=== PATIENT | female | born 1990 | race Caucasian/White ===

== ENCOUNTER 2016-10-06 20:40 | Emergency (ER) | payer BC ==
--- NOTE | 2016-10-06 20:44 | PDOC ---
[id number] is a 26 year old female with a past medical hx of anxiety who presents to the ED complaining of intermittent abdominal cramping for two days. She describes the abdominal cramping as period cramps, but states the cramping progressively worsened as the day went on. The patient reports her LMP was and she took an at home test this morning, which came back positive. The patient states she has been having intermittent episodes of diarrhea and since this morning. The patient reports 10 episodes of diarrhea and denies any blood in the stool. She had one episode of vomiting today at around 1530 and reports she vomited up the pizza she had for lunch. She denies hemoptysis. The patient also states she has been having very light vaginal bleeding for two days and describes the color as dark brown. She states she has been one time in the past and had no complications with her or delivery. She reports lightheadedness but denies any syncope. She denies a fever, chest pain, palpitations, SOB, cough, wheezing, numbness, and tingling. Allergies: NKDA Social: Denies tobacco and alcohol use Surgical: None reported <Sharla Funes - Last Filed: 10/06/16 21:44> - History of Present Illness Initial Comments: 10/06/16 21:22 Chief complaint: Nausea vomiting and diarrhea History of present illness: Symptoms since yesterday. Slight spotting since Wednesday night, described as a little bit of a streak of dark blood on her underwear. No other vaginal discharge. Prior was unremarkable, no complications in the mother or . Physical exam: Alert oriented 3 well-developed well-nourished no acute distress. No active vomiting and no cramping Afebrile, vital signs normal HEENT clear Neck supple without bruit mass or nodes Chest clear CV regular without murmur or gallop Abdomen nondistended. Normal bowel sounds. Soft without masses tenderness organomegaly Skin turgor is good and mucous membranes are moist Extremities no CCE Neurological intact. No hyperactive reflexes or clonus Impression: Viral gastroenteritis, possible early miscarriage Plan: CBC and chemistries, IV fluid rehydration, timely PAPER CUP MACHINE OPERATOR follow-up. Since patient is refusing a vaginal exam at present, she was encouraged to see her OB/ RADIO ELECTRONICS OFFICER doctor tomorrow for further examination and treatment. 10/06/16 21:44 10/08/16 08:04 <Serge Mobley - Last Filed: 10/08/16 08:07> - General Chief Complaint: Pain, Acute Stated Complaint: CRAMPING, SPOTTING/POSITIVE Time Seen by Provider: 10/06/16 20:44 Past History <SadiqrubenSharla - Last Filed: 10/06/16 21:44> - Past Medical History Anemia: No Asthma: No Cancer: No Cardiac Disorders: No CVA: No COPD: No CHF: No Dementia: No Diabetes: No GI Disorders: No Disorders: Yes (CYSTITIS) HTN: No Hypercholesterolemia: No Liver Disease: No Psychiatric Problems: Yes (ANXIETY) Suicide Attempt (Hx): No Seizures: No Thyroid Disease: No - Surgical History Abdominal Surgery: No Appendectomy: No Cardiac Surgery: No Cholecystectomy: No Lung Surgery: No Neurologic Surgery: No Orthopedic Surgery: No - Immunization History Td Vaccination: Yes Immunization Up to Date: Yes - Psycho/Social/Smoking Cessation Hx Anxiety: Yes Suicidal Ideation: No Smoking Status: No Smoking History: Never smoked Have you smoked in the past 12 months: No Number of Cigarettes Smoked Daily: 0 Hx Alcohol Use: No Drug/Substance Use Hx: No Substance Use Type: None Hx Substance Use Treatment: No <Serge Mobley - Last Filed: 10/08/16 08:07> - Past Medical History Allergies/Adverse Reactions: Allergies Allergy/AdvReac Type Severity Reaction Status Date / Time No Known Drug Allergies Allergy Verified 10/06/16 20:41 Home Medications: Ambulatory Orders Ondansetron [Zofran Odt -] 4 mg SL TID PRN #10 od.tablet 10/06/16 Review of Systems - Review of Systems Able to Perform ROS?: Yes Comments:: 10/06/16 21:08 CONSTITUTIONAL: Absent: fever, chills, diaphoresis, generalized weakness, malaise, loss of appetite HEENT: Absent: rhinorrhea, nasal congestion, throat pain, throat swelling, difficulty swallowing, mouth swelling, ear pain, eye pain, visual Changes CARDIOVASCULAR: Absent: chest pain, syncope, palpitations, irregular heart rate, lightheadedness , peripheral edema RESPIRATORY: Absent: cough, shortness of breath, dyspnea with exertion, orthopnea, wheezing, stridor, hemoptysis GASTROINTESTINAL: +Nausea, vomiting, diarrhea, abdominal cramping. Absent: abdominal distension, constipation, melena, hematochezia GENITOURINARY: +Vaginal spotting. Absent: dysuria, frequency, urgency, hesitancy, hematuria, flank pain, genital pain MUSCULOSKELETAL: Absent: myalgia, arthralgia, joint swelling SKIN: Absent: rash, itching, pallor NEUROLOGIC: +Lightheadedness. Absent: headache, focal weakness or paresthesias, dizziness, unsteady gait, seizure, mental status changes, bladder or bowel incontinence PSYCHIATRIC: Absent: anxiety, depression, suicidal or homicidal ideation, hallucinations. <Sharla Funes - Last Filed: 10/06/16 21:44> *Physical Exam - Vital Signs Last Vital Signs Temp Pulse Resp BP Pulse Ox 98 F 120 H 16 128/93 100 10/06/16 20:43 10/06/16 20:43 10/06/16 20:43 10/06/16 20:43 10/06/16 20:43 - Physical Exam Comments: 10/06/16 21:44 GENERAL: Well developed, well nourished. Awake and alert. In no acute distress. HEENT: Normocephalic, atraumatic. PERRLA, EOMI. No conjunctival pallor. Sclera are non- icteric. Moist mucous membranes. Oropharynx is clear. NECK: Supple. Full ROM. No JVD. Carotid pulses 2+ and symmetric, without bruits. No thyromegaly. No lymphadenopathy. CARDIOVASCULAR: +Tachycardic. Regular rhythm. No murmurs, rubs, or gallops. Distal pulses are 2 + and symmetric. PULMONARY: No evidence of respiratory distress. Lungs clear to auscultation bilaterally. No wheezing, rales or rhonchi. ABDOMINAL: Soft. Non-tender. Non-distended. No rebound or guarding. No organomegaly. Normoactive bowel sounds. MUSCULOSKELETAL Normal range of motion at all joints. No bony deformities or tenderness. No CVA tenderness. EXTREMITIES: No cyanosis. No clubbing. No edema. No calf tenderness. SKIN: Warm and dry. Normal capillary refill. No rashes. No jaundice. NEUROLOGICAL: Alert, awake, appropriate. Cranial nerves 2-12 intact. No deficits to light touch and temperature in face, upper extremities and lower extremities. Normal speech. PSYCHIATRIC: Cooperative. Good eye contact. Appropriate mood and affect. <Sharla Funes - Last Filed: 10/06/16 21:44> ED Treatment Course - LABORATORY CBC & Chemistry Diagram: 10/06/16 21:15 10/06/16 21:15 - ADDITIONAL ORDERS Additional order review: Laboratory Results 10/06/16 20:50 Urine Color Yellow Urine Appearance Clear Urine pH 5.5 Ur Specific [place] >= 1.030 H Urine Protein 1+ H Urine Glucose (UA) Negative Urine Ketones Trace Urine Blood 2+ H Urine Nitrite Negative Urine Bilirubin 1+ H Urine Urobilinogen 0.2 e.u/dl Ur Leukocyte Esterase Trace Urine RBC 0-2 Urine WBC 5-8 Ur Epithelial Cells Few Urine Bacteria Few Urine HCG, Qual Positive <Sharla Funes - Last Filed: 10/06/16 21:44> - LABORATORY CBC & Chemistry Diagram: 10/06/16 21:15 10/06/16 21:15 <Serge Mobley - Last Filed: 10/08/16 08:07> Medical Decision Making - Medical Decision Making 10/06/16 21:20 Patient's symptoms of nausea vomiting and multiple episodes of diarrhea are most consistent with a viral gastroenteritis. She is absolutely certain about her last period, and her periods are always regular. She has no missed menses. Therefore she is barely 2 weeks . She refuses vaginal exam, planning to see her PAPER CUP MACHINE OPERATOR doctor tomorrow for further examination. Will check labs today, administer intravenous fluid rehydration, and emphasize follow-up tomorrow with PAPER CUP MACHINE OPERATOR physician. Patient requests medication for nausea. Zofran administered. Nausea is improved, no further vomiting. Intravenous fluids running Laboratories pending. Signed out to Dr. Day 7 PM pending lab results and further evaluation 10/08/16 08:05 <Serge Mobley - Last Filed: 10/08/16 08:07> *DC/Admit/Observation/Transfer - Attestations Scribe Attestion: 10/06/16 21:08 Documentation prepared by Sharla Fnues, acting as medical administrative specialist for Serge Brewster MD/DO. <Sharla Funes - Last Filed: 10/06/16 21:44> <Serge Mobley J - Last Filed: 10/08/16 08:07> Diagnosis at time of Disposition: Acute gastroenteritis - Discharge Dispostion Disposition: HOME Condition at time of disposition: Stable - Prescriptions Prescriptions: Ondansetron [Zofran Odt -] 4 mg SL TID PRN #10 od.tablet PRN Reason: Nausea - Patient Instructions Printed Discharge Instructions: Viral Gastroenteritis Additional Instructions: clear liquids advance diet cautiously Zofran 4mg ODT up to 3 times a day as needed for nausea return if vomiting persists followup with your warp tying machine knotter tomorrow as planned
[2016-10-06 20:48] VITALS: BP 128/93; PULSE 120; TEMP 98; BMI 24.5
[2016-10-06 20:54] LABS: PH,URINE 5.5 (4.5-8); URINE APPEARANCE Clear; URINE BILIRUBIN 1+ (NEGATIVE); URINE GLUCOSE (UA) Negative (NEGATIVE); URINE KETONE Trace (NEGATIVE); URINE LEUK ESTERASE Trace (NEGATIVE); URINE NITRITE Negative (NEGATIVE); URINE UROBILINOGEN 0.2 E.U/dl (0.2-1.0)
[2016-10-06 20:58] LABS: URINE BLOOD 2+ (NEGATIVE); URINE PROTEIN 1+ (NEGATIVE)
[2016-10-06 20:59] LABS: URINE COLOR YELLOW
[2016-10-06 21:05] LABS: URINE BACTERIA FEW /hpf (NEGATIVE); URINE RBC 0-2 /hpf (0-3)
[2016-10-06] MEDS ORDERED: SODIUM CHLORIDE 1,000 ML IV STA (21:12)
[2016-10-06 21:27] LABS: MEAN PLT VOLUME 8.3 fl (7.5-11.1)
[2016-10-06 21:29] LABS: MCH 28.9 pg (25.7-33.7); MCHC 33.2 g/dl (32.0-36.0); MEAN CELL VOLUME 87.2 fl (80-96); PLATELET COUNT 223 K/MM3 (134-434); RDW 12.3 % (11.6-15.6); WHITE BLOOD COUNT 9.7 K/mm3 (4.0-10.0)
[2016-10-06 21:38] LABS: ALBUMIN 4.6 g/dl (3.5-5.0); ALK PHOS 60 U/L (32-92); ANION GAP 11 (8-16); BILIRUBIN,TOTAL 0.7 mg/dl (0.2-1.0); CALCIUM 9.4 mg/dl (8.4-10.2); CO2 21 mmol/L (22-28); CREATININE 0.8 mg/dl (0.6-1.3); GLUCOSE,RANDOM 155 mg/dl (74-106); SGOT/AST 22 U/L (10-42); SGPT/ALT 19 U/L (10-40); TOT PROT 7.5 g/dl (6.4-8.3)
[2016-10-06] MEDS ORDERED: ONDANSETRON 4 MG/2 ML VIAL ONE (21:54)
[2016-10-06] MEDS ORDERED: ONDANSETRON 4 MG/2 ML VIAL IVPB ONE (22:04)
--- NOTE | 2016-10-06 22:15 | PDOC ---
[id number] 100 10/06/16 20:43 10/06/16 20:43 10/06/16 20:43 10/06/16 20:43 10/06/16 20:43 ED Treatment Course - LABORATORY CBC & Chemistry Diagram: 10/06/16 21:15 10/06/16 21:15 - ADDITIONAL ORDERS Additional order review: Laboratory Results 10/06/16 10/06/16 21:15 20:50 Sodium 136 Potassium 3.7 Chloride 104 Carbon Dioxide 21 L Anion Gap 11 BUN 9 Creatinine 0.8 Creat Clearance w eGFR > 60 Random Glucose 155 H Calcium 9.4 Total Bilirubin 0.7 AST 22 ALT 19 Alkaline Phosphatase 60 Total Protein 7.5 Albumin 4.6 Urine Color Yellow Urine Appearance Clear Urine pH 5.5 Ur Specific [place] >= 1.030 H Urine Protein 1+ H Urine Glucose (UA) Negative Urine Ketones Trace Urine Blood 2+ H Urine Nitrite Negative Urine Bilirubin 1+ H Urine Urobilinogen 0.2 e.u/dl Ur Leukocyte Esterase Trace Urine RBC 0-2 Urine WBC 5-8 Ur Epithelial Cells Few Urine Bacteria Few Urine HCG, Qual Positive 10/06/16 21:15 RBC 4.77 MCV 87.2 MCHC 33.2 RDW 12.3 MPV 8.3 Neutrophils % 96.0 H Lymphocytes % 2.0 L Monocytes % 1.0 L Eosinophils % 1.0 - Medications Given in the ED: ED Medications Discontinued Medications Generic Name Dose Route Start Last Admin Trade Name Freq PRN Reason Stop Dose Admin Sodium Chloride 1,000 mls @ 1,000 mls/hr 10/06/16 21:12 10/06/16 21:25 Normal Saline - IV 10/06/16 22:11 1,000 mls/hr ASDIR STA Administration Ondansetron HCl 4 mg 10/06/16 22:04 10/06/16 22:07 Zofran Injection IVPB 10/06/16 22:05 4 mg ONCE ONE Administration Progress Note - Progress Note Progress Note: Care of this patient received from Dr. Nixon. Patient received Zofran 4 mg IV and a liter of normal saline. Patient states that she feels relief from her nausea; she has no new symptoms. Patient tolerated 6 ounces of water without nausea/vomiting. Patient will be discharged with prescription for Zofran 4 mg ODT to be used up to 3 times a day as needed for persistent nausea (#10). The patient is planning on following up with her electric meter tester tomorrow. She should should return to the emergency room if she has any persistent, severe vomiting *DC/Admit/Observation/Transfer Diagnosis at time of Disposition: Acute gastroenteritis - Discharge Dispostion Disposition: HOME Condition at time of disposition: Stable - Prescriptions Prescriptions: Ondansetron [Zofran Odt -] 4 mg SL TID PRN #10 od.tablet PRN Reason: Nausea - Patient Instructions Printed Discharge Instructions: Viral Gastroenteritis Additional Instructions: clear liquids advance diet cautiously Zofran 4mg ODT up to 3 times a day as needed for nausea return if vomiting persists followup with your electric meter tester tomorrow as planned
--- NOTE | 2016-10-09 15:11 | PDOC ---
Patient Follow-up (Call Back) - Post ED Follow - Up Chief Complaint: Vaginal Bleeding Condition at time of discharge: Stable Disposition at time of original discharge: HOME Reason for Call Back: Abnwl. Lab Signs/Symptoms Improved: Yes - Disposition Additional Instructions/Notes: Patient was here 2-1/2 days ago for vaginal spotting, her last menstrual period was about a month ago, and she was concerned if she might be . Her urine test was borderline. She comes in now requesting results of her serum test. The beta hCG on October 06 was 28. Clinically, the patient states she has no further vaginal spotting. There is no vaginal or pelvic pain. She is totally asymptomatic and feeling well. She called her MUNICIPAL FIREFIGHTER doctor today and they told her to wait until she is 6 weeks to come and be seen. The most likely oxygenation for the symptoms is breakthrough bleeding shortly after becoming . Given the absence of other symptoms, ectopic is much less likely. Threatened is also less likely. Patient requested to have repeat beta hCG to assess for appropriate rise. Repeat quantitative beta hCG ordered. Patient advised to call back for her results at 6:30 PM and to see her MUNICIPAL FIREFIGHTER doctor on Wednesday.
== END 2016-10-06 23:00 | disposition home or self-care (01) ==
LOC: FER 20:40
PROC: 3E033GC Introduction of Other Therapeutic Substance into Peripheral Vein, Percutaneous Approach (ICD-10-PCS; principal; 2016-10-06)
PROC: 3E0337Z Introduction of Electrolytic and Water Balance Substance into Peripheral Vein, Percutaneous Approach (ICD-10-PCS; 2016-10-06)
DX: K52.9 Noninfective gastroenteritis and colitis, unspecified (principal)
CPT/HCPCS: 36415; 80053; 81003; 81015; 84702; 84703; 85025; 99282-25

== ENCOUNTER 2020-08-04 14:45 | Emergency (ER) | payer BC ==
[2020-08-04 14:51] VITALS: BP 125/78; PULSE 98; TEMP 98.2; BMI 21.9
[2020-08-04] MEDS ORDERED: PRESCRIPTION PAD 1 EACH EACH NR ONE (15:32)
== END 2020-08-04 15:53 | disposition home or self-care (01) ==
LOC: FER 14:45
DX: R05 Cough (principal)
CPT/HCPCS: 99282-25

== ENCOUNTER 2021-04-04 04:53 | Day surgery (SDC) | payer BC ==
[2021-03-28 15:52] VITALS: BMI 22.7
[2021-04-04] MEDS ORDERED: ACETAMINOPHEN 1000 MG/100 ML VIAL (NON FORMULARY) IVPB ONE ×2 (07:57→09:15)
[2021-04-04] MEDS ORDERED: DEXAMETHASONE SOD PHOSPHATE 4 MG/1 ML VIAL ONE (07:59)
[2021-04-04] MEDS ORDERED: SUCCINYLCHOLINE CHLORIDE 200 MG/10 ML SYRINGE ONE (07:59)
[2021-04-04] MEDS ORDERED: PROPOFOL 20 ML ONE ×2 (07:59)
[2021-04-04] MEDS ORDERED: MIDAZOLAM HCL 2 MG/2 ML SINGLE DOSE VIAL ONE (08:00)
[2021-04-04] MEDS ORDERED: DEXTROSE 5%-0.45% SALINE 1,000 ML IV SCH (08:00)
[2021-04-04] MEDS ORDERED: IBUPROFEN 800 MG/8 ML IJ IVPB SCH (08:00)
[2021-04-04] MEDS ORDERED: ceFAZolin SODIUM 1 GM VIAL IVPB ONE (08:10)
[2021-04-04] MEDS ORDERED: ceFAZolin SODIUM 1 GM VIAL ONE (08:24)
[2021-04-04] MEDS ORDERED: HEPARIN NA (PORCINE) 5,000 UNITS/ML 1ML VIAL ONE (08:26)
[2021-04-04] MEDS ORDERED: LIDOCAINE HCL 1%, 10 MG/ML (20ML VIAL) ONE (08:26)
[2021-04-04] MEDS ORDERED: SODIUM CHLORIDE 0.9% P/F 10 ML VIAL IJ ONE (08:28)
[2021-04-04] MEDS ORDERED: SODIUM BICARBONATE 8.4% - 50 ML ONE (08:28)
[2021-04-04] MEDS ORDERED: oxyCODONE HCL 5 MG TABLET PO PRN ×2 (08:38)
[2021-04-04] MEDS ORDERED: ONDANSETRON 4 MG/2 ML VIAL IVPUSH PRN (08:38)
[2021-04-04] MEDS ORDERED: LACTATED RINGERS SOLUTION 1,000 ML IV SCH (08:45)
[2021-04-04] MEDS ORDERED: ACETAMINOPHEN INJECTION 100 ML IVPB ONE (09:11)
[2021-04-04] MEDS ORDERED: IBUPROFEN 800 MG/8 ML IJ IVPB ONE (09:31)
[2021-04-04 13:45] VITALS: BP 115/80; PULSE 86; TEMP 98.2
== END 2021-04-04 12:05 | disposition home or self-care (01) ==
LOC: JASU-SURG 04:53
PROVIDERS: ATTEND Urology
PROC: 0T7B8ZZ Dilation of Bladder, Via Natural or Artificial Opening Endoscopic (ICD-10-PCS; principal; 2021-04-04 08:00)
PROC: 3E0K8GC Introduction of Other Therapeutic Substance into Genitourinary Tract, Via Natural or Artificial Opening Endoscopic (ICD-10-PCS; 2021-04-04 08:00)
DX: N30.10 Interstitial cystitis (chronic) without hematuria (principal); N32.89 Other specified disorders of bladder
CPT/HCPCS: 81025; 94760; J0131; J1644